=== PATIENT | male | born 1980 | race Two or more races ===

== ENCOUNTER 2019-06-13 07:57 | Day surgery (SDC) | payer OTHER | END 2019-06-13 13:00 | disposition home or self-care (01) | LOC: AMB-ENDOS 07:57 | DX: K57.32 Diverticulitis of large intestine without perforation or abscess without bleeding (principal) ==

== ENCOUNTER 2023-06-17 08:51 | Inpatient (IN) | payer OTHER ==
[~2023-06-17] VITALS: Ht 174 cm; Wt 84.4 kg
[2023-06-18] MEDS ORDERED: CRESTOR20 MG PO (13:45)
[2023-06-18] MEDS ORDERED: FENOFIBRATE150 MG PO (13:45)
[2023-06-18] MEDS ORDERED: PROTONIX40 MG PO (13:45)
[2023-06-23 11:48] LABS: HEMATOCRIT 39.8 % (39.0-48.0); HEMOGLOBIN 13.2 g/dL (13-16.00); MEAN CELL VOLUME 81.9 fL (80.0-100.00); MEAN CORPUSCULAR HEMOGLOBIN 27.1 pg (27.00-32.0); MEAN CORPUSCULAR HGB CONC 33.1 g/dl (32.0-36.0); PLATELET COUNT 238 K/uL (150-450); RED BLOOD COUNT 4.86 M/uL (4.00-6.00); RED CELL DISTRIBUTION WIDTH 14.1 % (11.5-14.5)
[2023-06-23 12:13] LABS: ALBUMIN 3.8 gm/dL (3.4-5.0); CREATININE SERUM 0.95 mg/dL (0.70-1.30); GFR 86.53; MAGNESIUM 1.9 mg/dL (1.8-2.4); PHOSPHOROUS 3.7 mg/dL (2.5-4.9); POTASSIUM 3.71 mEq/L (3.5-5.1)
[2023-06-24 08:04] LABS: HEMOGLOBIN 11.9 g/dL (13-16.00); MEAN CELL VOLUME 81.9 fL (80.0-100.00); PLATELET COUNT 225 K/uL (150-450); RED CELL DISTRIBUTION WIDTH 13.7 % (11.5-14.5)
[2023-06-24 09:23] LABS: CALCIUM 8.6 mg/dL (8.5-10.1); CREATININE SERUM 0.98 mg/dL (0.70-1.30); GFR 83.48; MAGNESIUM 1.9 mg/dL (1.8-2.4); PHOSPHOROUS 2.9 mg/dL (2.5-4.9); POTASSIUM 3.98 mEq/L (3.5-5.1)
[2023-06-24 09:24] LABS: ALBUMIN 3.2 gm/dL (3.4-5.0)
[2023-06-25 06:34] LABS: HEMATOCRIT 37.3 % (39.0-48.0); HEMOGLOBIN 12.2 g/dL (13-16.00); MEAN CELL VOLUME 81.7 fL (80.0-100.00); MEAN CORPUSCULAR HEMOGLOBIN 26.7 pg (27.00-32.0); MEAN CORPUSCULAR HGB CONC 32.7 g/dl (32.0-36.0); PLATELET COUNT 224 K/uL (150-450); RED BLOOD COUNT 4.57 M/uL (4.00-6.00); RED CELL DISTRIBUTION WIDTH 13.7 % (11.5-14.5)
[2023-06-25 07:02] LABS: CALCIUM 8.6 mg/dL (8.5-10.1); CREATININE SERUM 0.98 mg/dL (0.70-1.30); GFR 83.48; PHOSPHOROUS 2.1 mg/dL (2.5-4.9); POTASSIUM 3.7 mEq/L (3.5-5.1)
[2023-06-26] MEDS ORDERED: NEURONTIN300 MG PO (15:05)
[2023-06-26] MEDS ORDERED: ACETAMINOPHEN500 M2 PO (15:05)
== END 2023-06-26 16:10 | disposition home or self-care (01) | DRG 331 ==
LOC: SURH 06-23 05:50 → O/R 06-23 05:50 → SURG 06-23 10:30 → SURH 06-23 14:19 → SURG 06-23 17:45 → SURH 06-26 16:10
PROVIDERS: Internal Medicine Geriatric Medicine; ADMIT Surgery; ATTEND Surgery
PROC: 0DBP4ZZ Excision of Rectum, Percutaneous Endoscopic Approach (ICD-10-PCS; 2023-06-23)
PROC: 0DJD8ZZ Inspection of Lower Intestinal Tract, Via Natural or Artificial Opening Endoscopic (ICD-10-PCS; 2023-06-23)
PROC: 0DTN4ZZ Resection of Sigmoid Colon, Percutaneous Endoscopic Approach (ICD-10-PCS; principal; 2023-06-23 17:45)
DX: K57.20 Diverticulitis of large intestine with perforation and abscess without bleeding (principal); D64.9 Anemia, unspecified; R10.32 Left lower quadrant pain